=== PATIENT | male | born 1970 | race Caucasian/White ===

== ENCOUNTER 2019-08-04 14:51 | Inpatient (IN) | payer MEDICARE, MEDICAID ==
[~2019-08-04 14:51] MED LIST: Atropine Sulfate 1 mg/10 ml Syringe ONE; Calcium Chloride 1 GM/10 ML Abboject SYRINGE ONE; EPINEPHrine 1 MG/10 ML Abboject SYRINGE ONE; Sodium Bicarb 50 MEQ/50 ML Abboject 8.4% SYRINGE ONE
[2019-08-04 15:23] LABS: Hemoglobin 9.7 g/dL (14.0-18.0); Mean Corpuscular HGB CONC 30.4 g/dL (32.0-36.0); Mean Corpuscular Hemoglobin 31.8 pg (27.0-31.0); Mean Platelet Volume 8.7 fL (7.4-10.4); Platelet Count 172 thou/uL (130-400); RBC Distribution Width 14.7 % (11.5-14.5); Red Blood Cell (RBC) Count 3.04 mill/uL (4.70-6.10)
[2019-08-04 15:35] LABS: Actual Bicarbonate (HCO3a) 9.2 mEq/L (22-28); Analyzer IN Cardio ER; Base Excess (BEa) -23.7 mEq/L (-2.0 to +3.0); CO2 Tension 56.1 mmHg (35.0-45.0); Calcium, Ionized 1.32 mmol/L (1.12-1.30); Carboxyhemoglobin (COHb) 1.2 gm% (0.0-3.0); Potassium - ABG Lab 7.22 mmol/L (3.70-5.30)
[2019-08-04 15:36] LABS: ALV-art Gradient 555.875 (0-20); Puncture Site RBRACH; pH, Arterial 6.84 (7.35-7.45)
--- NOTE | 2019-08-04 15:37 | RAD ---
Exam: Chest one view HISTORY:Code 3. Comparison: None FINDINGS: Lines and tubes: Endotracheal tube at the level of clavicles. Nasogastric tube appears to be in the d istal thoracic esophagus. Cardiac silhouette:Cardiomegaly. Aorta: Unremarkable Pulmonary vessels: Normal Costophrenic angles: Moderate right-sided pleural effusion. LUNGS: Bilateral perihilar interstitial and alveolar opacities, right greater than left. Associated c entral air bronchograms. Pneumothorax: No obvious pneumothorax on this supine projection. Evaluation is limited by technique. Osseous abnormalities: Multiple right rib fractures. IMPRESSION: 1. Nasogastric tube terminating at the level of the distal thoracic esophagus. 2. Moderate right-sided pleural effusion. Multiple right rib fractures. Bilateral perihilar interstit ial and alveolar opacities. Findings may represent aspiration, volume overload, pneumonia or contusion. 3. Results study discussed with Dr. Manning 08/04/2019 at 3:36 PM Code CR Transcribed Date/Time: 08/04/2019 3:41 PM
[2019-08-04 15:44] LABS: ALT (SGPT) 60 U/L (8-55); AST (SGOT) 121 U/L (5-34); Albumin 3.7 g/dL (3.5-5.0); Alkaline Phosphatase 183 U/L (40-110); Anion Gap 40 mmol/L (10-20); BUN (Urea Nitrogen) 64 mg/dL (8.9-20.6); CK (CPK) 264 U/L (30-200); Calc. Creatinine Clearance 0 mL/min (70-130); Calcium 9.2 mg/dL (7.8-10.44); Chloride 91 mmol/L (98-107); Estimated GFR-MDRD 5; Globulin 2.8 g/dL (2.4-3.5); Lipase 13 U/L (8-78); Protein, Total 6.5 g/dL (6.0-8.3); Sodium 130 mmol/L (136-145)
[2019-08-04 15:53] LABS: Carbon Dioxide 8 mmol/L (22-29); Glucose Greater than 800 mg/dL (70-105); Potassium 8.6 mmol/L (3.5-5.1)
[2019-08-04 15:56] LABS: Band 5 % (5-11); Eosinophils 1 % (0-10); Hypochromia SLIGHT = 6-15 cells (100X) (0-5/hpf); Lymphocytes 48 % (21-51); MDiff Complete? YES; Macrocytosis SLIGHT = 6-15 cells (100X) (0-5/hpf); Monocytes 5 % (0-10); Neutrophil 39 % (42-75); Nucleated RBC 1 % (0); Platelet Morphology Comment Appears Adequate; Polychromasia MODERATE = 3-4 cells (100X) (0-2/hpf); Reactive Lymphocytes 1 % (0-10); Schistocytes SLIGHT = 2-5 cells (100X) (0-1/hpf); Target Cells SLIGHT = 2-5 cells (100X) (0-1/hpf); Tear Drops SLIGHT = 2-5 cells (100X) (0-1/hpf); White Blood Cell (WBC) Count 4.6 thou/uL (4.8-10.8)
[2019-08-04 16:08] LABS: Magnesium 2.7 mg/dL (1.6-2.6)
[2019-08-04 16:10] LABS: CKMB 15.7 ng/mL (0-6.6)
[2019-08-04 16:12] LABS: Phosphorus 9.2 mg/dL (2.3-4.7)
[2019-08-04] MEDS ORDERED: Insulin Regular 300 UNITS/3 ML VIAL ONE (16:21)
[2019-08-04] MEDS ORDERED: Mag-Al 1200 mg/1200 mg/30 ML UDCUP PO PRN (16:32)
[2019-08-04] MEDS ORDERED: CCU Electrolyte Replacement 1 EACH IVPB ONE (16:32)
[2019-08-04] MEDS ORDERED: Milk Of Magnesia 30 ML UDCUP PO PRN (16:32)
[2019-08-04] MEDS ORDERED: HUMULIN R 100 UNITS in Sodium Chloride 0.9% 100 ML IVPB SCH (16:45)
[2019-08-04] MEDS ORDERED: Ventilator Sedation Protocol 1 EACH FS SCH (16:45)
--- NOTE | 2019-08-04 16:50 | PDOC.FPRHP ---
- History of Present Illness Chief Complaint: Cardiac arrest History of Present Illness: Patient is a presumed 49 yo male (age unobtainable) with unknown PMHx who presented in cardiac arrest earlier today. He was found down for approx. 20-40 min at home before EMS arrived. Family did not perform CPR during that time. EMS found the patient to be in asystole and started CPR. Per EMS the patient's family reported that the patient may have been using drugs earlier today. EMS performed multiple rounds of CPR, and upon arrival at [facility] patient had multiple rounds of ACLS performed in ED. ROSC was achieved. Patient remains AMS and further history is unobtainable. ED Course: Patient had IO placed in right humerus by EMS which was subsequently removed in ED. Then right femoral central line placed. Hypothermia protocol initiated. Patient intubated in ED. Epinephrine drip was started. Dr. Negrete consulted from ED, plans to start dialysis once in ICU. Dr. Keen consulted from ED, no plans for cardio intervention at this time. consulted from ED, will adjust ventilator settings due to respiratory acidosis. BS found to be 800, given 10 units regular insulin in ED. UDS pending - Allergies/Adverse Reactions Allergies Allergy/AdvReac Type Severity Reaction Status Date / Time Unable to Assess Allergy Verified 08/04/19 15:24 - Home Medications Comments: unable to obtain home meds - History PMHx: unable to obtain PSHx: unable to obtain FHx: unable to obtain Social: unable to obtain - Review of Systems ROS unobtainable: due to mental status - Vital signs BP: 140/71 HR: 60 RR: 16 Tmax: 93.9F Pox: 94%% on Vent Wt: 70 kg - Physical Exam -Constitutional: intubated and sedated HEENT: normocephalic and atraumatic Neck: supple, no JVD Chest: no lesions Heart: RRR, normal S1/S2, no murmurs/rubs/gallops -Heart: 2+ pitting edema up to knees in bilateral LE -Lungs: poor air movement throughout Abdomen: bowel sounds present Musculoskeletal: normal structure, normal tone Skin: no jaundice -Skin: appears pale, skin cool to touch Heme/Lymphatic: no unusual bruising or bleeding -Psychiatric: unable to assess 2/2 AMS FMR H&P: Results - Labs Result Diagrams: 08/04/19 15:14 08/04/19 15:14 Lab results: WBC 4.6 thou/uL (4.8-10.8) L 08/04/19 15:14 Hgb 9.7 g/dL (14.0-18.0) L 08/04/19 15:14 Hct 31.8 % (42.0-52.0) L 08/04/19 15:14 MCV 104.0 fL (78.0-98.0) H 08/04/19 15:14 Plt Count 172 thou/uL (130-400) 08/04/19 15:14 Band Neuts % (Manual) 5 % (5-11) 08/04/19 15:14 ABG pH 6.84 (7.35-7.45) L* 08/04/19 15:27 ABG pCO2 56.1 mmHg (35.0-45.0) H 08/04/19 15:27 ABG pO2 87.0 mmHg (80.0-100.0) 08/04/19 15:27 Sodium 130 mmol/L (136-145) L 08/04/19 15:14 Potassium 8.6 mmol/L (3.5-5.1) H* 08/04/19 15:14 Chloride 91 mmol/L (98-107) L 08/04/19 15:14 Carbon Dioxide 8 mmol/L (22-29) L* 08/04/19 15:14 BUN 64 mg/dL (8.9-20.6) H 08/04/19 15:14 Creatinine 10.23 mg/dL (0.7-1.3) H 08/04/19 15:14 Glucose Greater than 800 mg/dL (70-105) H* 08/04/19 15:14 Calcium 9.2 mg/dL (7.8-10.44) 08/04/19 15:14 Total Bilirubin 1.0 mg/dL (0.2-1.2) 08/04/19 15:14 AST 121 U/L (5-34) H 08/04/19 15:14 ALT 60 U/L (8-55) H 08/04/19 15:14 Alkaline Phosphatase 183 U/L (40-110) H 08/04/19 15:14 Creatine Kinase 264 U/L (30-200) H 08/04/19 15:14 CK-MB (CK-2) 15.7 ng/mL (0-6.6) H* 08/04/19 15:14 Serum Total Protein 6.5 g/dL (6.0-8.3) 08/04/19 15:14 Albumin 3.7 g/dL (3.5-5.0) 08/04/19 15:14 Lipase 13 U/L (8-78) 08/04/19 15:14 - Radiology Interpretation Chest x-ray Status: report reviewed by me (pulmonary edema) FMR H&P: A/P - Problem List (1) Cardiac arrest Current Visit: Yes Status: Acute Code(s): I46.9 - CARDIAC ARREST, CAUSE UNSPECIFIED (2) Hyperglycemia, unspecified Current Visit: Yes Status: Acute Code(s): R73.9 - HYPERGLYCEMIA, UNSPECIFIED (3) Hyperkalemia Current Visit: Yes Status: Acute Code(s): E87.5 - HYPERKALEMIA (4) Hypothermia Current Visit: Yes Status: Acute Code(s): T68.XXXA - HYPOTHERMIA, INITIAL ENCOUNTER Qualifiers: Encounter type: initial encounter Qualified Code(s): T68.XXXA - Hypothermia , initial encounter (5) ESRD (end stage renal disease) on dialysis Current Visit: Yes Status: Acute Code(s): N18.6 - END STAGE RENAL DISEASE; Z99.2 - DEPENDENCE ON RENAL DIALYSIS (6) Drug abuse Current Visit: Yes Status: Acute Code(s): F19.10 - OTHER PSYCHOACTIVE SUBSTANCE ABUSE, UNCOMPLICATED (7) Transaminitis Current Visit: Yes Status: Acute Code(s): R74.0 - NONSPEC ELEV OF LEVELS OF TRANSAMNS & LACTIC ACID DEHYDRGNSE (8) Macrocytic anemia Current Visit: Yes Status: Acute Code(s): D53.9 - NUTRITIONAL ANEMIA, UNSPECIFIED (9) Hyperphosphatemia Current Visit: Yes Status: Acute Code(s): E83.39 - OTHER DISORDERS OF PHOSPHORUS METABOLISM - Plan Patient is a 49 yo male with unknown PMHx who presents with ROSC s/p cardiac arrest: #Cardiac Arrest s/p ROSC -admit to CCU for further monitoring -patient with initial bradycardia, epinephrine gtt started in ED and plan to continue -Consult Cardiology-Dr. Keen, evaluated patient in ED with no further recs at this time -Consult Pulmonology-, plans to adjust vent settings -intubated in field by EMS -Right femoral central line in place -Epinephrine gtt initiated for bradycardia, will continue -vitals q4h, strict I/Os #Hyperkalemia #ESRD on HD -per EMS patient's family reported the patient receives dialysis on MWF (unable to confirm) -initial K is 8.6 -Consult Nephro-Dr. Negrete, will arrange for HD in ICU #Hyperglycemia -BS 800 in ED, s/p 10 units regular insulin -start Insulin drip -Accuchecks q2h #Hx of Drug Abuse -UDS positive for meth, opioids, cocaine #Transaminitis -AST 121, ALT 60, Alk Phos 183 -continue to monitor on AM CMP #Macrocytic Anemia -monitor on CBC -consider workup once more alert #Hyperphosphatemia -Phos 9.2 on admission -dialysis to be performed in ICU #Hypothermia -temp 93.9F in ED -Hypothermia protocol initiated Diet: NPO VTE: SCDs, Heparin Code Status: FULL PCP--CC, unknown Dispo: Stable, admitted to inpatient in CCU. Continue to monitor. Consulted Pulm , Cardio, Nephro, appreciate further recs. Case Mgmt consulted to contact family. Anticipate LOS >2 days. FMR H&P: Upper Level - Plan Date/Time: 08/04/19 5525 I, Noel Mejia MD, have evaluated this patient and agree with findings/ plan as outlined by inclusion intern resident. Pertinent changes/additions are listed here. ROSC s/p cardiac arrest with hypothermic protocol - Likely secondary to missed dialysis - Continue epinephrine drip and titrate as possible - Cardiology consulted from ED - Core temp at 93.9 without intervention Hyperkalemia on HD - Reported missed sessions - Emergent dialysis Hyperglycemia on suspected DM - Insulin with accuchecks CODE STATUS: FULL CODE until further evaluation of surrogate decision maker vs. advanced directive PCP: Unknown Disposition: Poor, will admit to CCU for emergent dialysis.
[2019-08-04 16:59] LABS: Bacteria/HPF None Seen HPF (None Seen); Bilirubin Negative (Negative); Blood, Urine Trace (Negative); Clarity Clear (Clear); Glucose, Urine (Dipstick) Greater than 1000 mg/dL (Negative); Leukocyte Negative Leu/uL (Negative); Nitrite Negative (Negative); Protein, Urine (Dipstick) 200 mg/dL (Neg-Trace); Squamous Epithelial None Seen HPF (0-3); Urobilinogen Normal mg/dL (Less than 2); WBC/HPF 0-3 HPF (0-3)
[2019-08-04] MEDS ORDERED: DISCONTINUE PREVIOUS NARCOTIC PAIN MEDICATIONS AND BENZODIAZEPINES FS SCH (17:06)
[2019-08-04] MEDS ORDERED: Fentanyl BOLUS 250 ML IVPB PRN (17:06)
[2019-08-04] MEDS ORDERED: Morphine 2 MG/ML SYRINGE SLOW IVP PRN (17:06)
[2019-08-04] MEDS ORDERED: fentaNYL Citrate/PF 2,000 MCG in Sodium Chloride 0.9% 60 ML IV SCH (17:06)
[2019-08-04] MEDS ORDERED: Propofol BOLUS 1,000 MG/100 ML VIAL IV PRN (17:06)
[2019-08-04] MEDS ORDERED: Lorazepam 2 MG/ML VIAL SLOW IVP PRN (17:06)
[2019-08-04 17:10] LABS: Amphetamine Not Detected (NotDetected); Barbiturates Screen Not Detected (NotDetected); Benzodiazepine Screen Not Detected (NotDetected); Cocaine Metabolite Screen Detected (NotDetected); Medtox Control Line Valid? VALID (VALID); Medtox Reader # READER 4; Methadone Not Detected (NotDetected); Methamphetamine Detected (NotDetected); Opiate Screen Detected (NotDetected); Oxycodone Screen Not Detected (NotDetected); Phencyclidine (PCP) Not Detected (NotDetected); THC/Cannabinoid Screen Not Detected (NotDetected); Tricyclic Screen Not Detected (NotDetected)
[2019-08-04] MEDS ORDERED: niCARdipine 40MG In NaCl 40 MG/200 ML BAG IVPB SCH (17:30)
[2019-08-04 17:31] LABS: Actual Bicarbonate (HCO3a) 11.8 mEq/L (22-28); Base Excess (BEa) -14.9 mEq/L (-2.0 to +3.0); CO2 Tension 30.5 mmHg (35.0-45.0); Calcium, Ionized 1.21 mmol/L (1.12-1.30); Carboxyhemoglobin (COHb) 1.3 gm% (0.0-3.0); Hemoglobin (Hb) 8.6 g/dL (14.0-18.0); O2 Tension (PaO2) 475.2 mmHg (80.0-100.0); Potassium - ABG Lab 7.35 mmol/L (3.70-5.30)
[2019-08-04 17:32] LABS: ALV-art Gradient 199.675 (0-20); Puncture Site RB
[2019-08-04] MEDS: niCARdipine 50 MG in Sodium Chloride 0.9% 250 ML 230 ML IV SCH (17:35)
--- NOTE | 2019-08-04 17:51 | CON ---
DATE OF CONSULTATION: 08/04/2019 REASON FOR CONSULTATION: Acute respiratory failure, prolonged cardiac arrest. HISTORY OF PRESENT ILLNESS: We think this patient's name is Sidney Orozco, whose date of is 1970, but that needs to be confirmed. This patient presented to the ER via EMS. He was down approximately 20 to 40 minutes at home before arrival. Apparently, the patient's family did not perform CPR. Initial rhythm was asystole. Apparently, there was a question whether or not the patient has been using illicit drugs earlier. He had multiple rounds of ACLS performed in the ED for return of spontaneous circulation was achieved. Total down time seems to be about 40 minutes. PAST MEDICAL HISTORY: Assuming this is the correct patient: 1. End-stage renal disease. 2. Cocaine abuse. 3. Secondary hyperparathyroidism. 4. Anemia of chronic disease. 5. Type 2 diabetes mellitus. 6. Hypothyroidism. 7. Hypertension. PAST SURGICAL HISTORY: 1. Appendectomy. 2. AV fistula placement in left forearm. SOCIAL HISTORY: Smokes marijuana and cocaine. REVIEW OF SYSTEMS: Cannot be obtained. He is currently intubated. PHYSICAL EXAMINATION: VITAL SIGNS: Pulse 85, blood pressure 191/103, O2 saturation 100%, respiratory rate 23, and temperature 93.0. GENERAL: The patient is a middle-aged male, who appears much older than his stated age. HEENT: Pupils are 5 mm, unreactive to light. Sclerae anicteric. Oropharynx, ET tube in place. He does have some chin thrusting when stimulated. NEUROLOGIC: He does not move any extremities when provoked with pain. CARDIOVASCULAR: S1 and S2. Regular. LUNGS: Clear to auscultation. ABDOMEN: Soft and nontender. EXTREMITIES: Left forearm AV fistula noted. LABORATORY DATA: White blood cell count 4.6, hematocrit 31.8, and platelet count 172. A pH initially 6.8, pCO2 of 56, and pO2 of 87. Sodium 130, potassium 8.6, chloride 91, CO2 of 8, BUN 64, creatinine 10.0, glucose greater than 800, and calcium 9.2. CK 264 and troponin 0.45. Urinalysis shows glucosuria. Chest x-ray demonstrates right effusion, air bronchograms on the left, and diffuse pulmonary edema throughout. ASSESSMENT: 1. Status post prolonged cardiopulmonary arrest. 2. Acute respiratory failure. 3. Severe metabolic acidosis. 4. Hyperkalemia. 5. Hyperosmolar nonketotic hyperglycemia. 6. Transaminitis. PLAN: Survival . He will need emergent hemodialysis. He will receive nicardipine as needed for blood pressure management. We will await the results of his tox screen. We can probably stop the epinephrine drip. Job ID: [id number]
[2019-08-04] MEDS: Propofol 1,000 MG/100 ML VIAL IV PRN (20:18)
[2019-08-04] MEDS: Pantoprazole 40 MG VIAL IVP SCH (20:18)
[2019-08-04] MEDS: Heparin 5,000 UNITS/ML VIAL SC SCH (20:18)
[2019-08-04] MEDS ORDERED: Dextrose 50% Abboject 50 ML SYRINGE SLOW IVP PRN (22:54)
[2019-08-04] MEDS ORDERED: Dextrose 5% in Water 1,000 ML IV PRN (22:54)
[2019-08-05] MEDS: HumaLOG 300 UNITS/3 ML VIAL SC PRN ×3 (01:03→23:08)
[2019-08-05] MEDS: niCARdipine 50 MG in Sodium Chloride 0.9% 250 ML 230 ML IV SCH (03:48)
[2019-08-05] MEDS: Propofol 1,000 MG/100 ML VIAL IV PRN (04:35)
[2019-08-05 04:55] LABS: #Lymphocytes 0.9 thou/uL (1.20-3.40); #Monocytes 0.6 thou/uL (0.11-0.59); #Neutrophils 12.3 thou/uL (1.40-6.50); %Basophils 0.2 % (0.0-1.0); %Eosinophils 0.3 % (0.0-10.0); %Lymphocytes 6.8 % (21.0-51.0); %Neutrophils 88.7 % (42.0-75.0); Hemoglobin 9.1 g/dL (14.0-18.0); Mean Corpuscular HGB CONC 33.9 g/dL (32.0-36.0); Mean Corpuscular Hemoglobin 31.5 pg (27.0-31.0); Mean Corpuscular Volume 92.9 fL (78.0-98.0); Platelet Count 225 thou/uL (130-400); RBC Distribution Width 14.8 % (11.5-14.5); Red Blood Cell (RBC) Count 2.89 mill/uL (4.70-6.10); White Blood Cell (WBC) Count 13.8 thou/uL (4.8-10.8)
[2019-08-05 05:20] LABS: ALT (SGPT) 67 U/L (8-55); AST (SGOT) 117 U/L (5-34); Albumin 3.7 g/dL (3.5-5.0); Alkaline Phosphatase 274 U/L (40-110); Anion Gap 25 mmol/L (10-20); BUN (Urea Nitrogen) 28 mg/dL (8.9-20.6); Bilirubin, Total 0.6 mg/dL (0.2-1.2); Calc. Creatinine Clearance 16 mL/min (70-130); Calcium 9.3 mg/dL (7.8-10.44); Carbon Dioxide 21 mmol/L (22-29); Chloride 93 mmol/L (98-107); Estimated GFR-MDRD 12; Globulin 2.9 g/dL (2.4-3.5); Glucose 287 mg/dL (70-105); Potassium 4.4 mmol/L (3.5-5.1); Protein, Total 6.6 g/dL (6.0-8.3); Sodium 135 mmol/L (136-145)
--- NOTE | 2019-08-05 06:59 | PDOC.FM ---
- Subjective Subjective: Pt intubated. Pupils fixed and dilated. No purposeful movement. - Objective MAR Reviewed: Yes Vital Signs & Weight: Vital Signs (12 hours) Temp Pulse Resp Pulse Ox 08/05/19 02:34 82 08/05/19 02:00 97.7 F 08/05/19 00:13 82 08/04/19 21:49 7 L 08/04/19 21:48 86 08/04/19 19:49 22 H 08/04/19 19:30 100 08/04/19 19:00 95.7 F L Weight Weight 59.6 kg Most Recent Monitor Data Heart Rate from ECG 71 NIBP 113/62 NIBP BP-Mean 79 Respiration from ECG 20 SpO2 100 I&O: 08/03/19 08/04/19 08/05/19 06:59 06:59 06:59 Intake Total 329.3 Output Total 340 Balance -10.7 Result Diagrams: 08/06/19 04:00 08/06/19 04:00 Phys Exam - Physical Examination Intubated Pupils fixed, dilated. Diminished breath sounds on right side. Left lung cabrera clear Cardiovascular: RRR Gastrointestinal: soft No gag reflex. Crossed extensor reflex LE. Dx/Plan - Plan Plan: Cardiac Arrest s/p ROSC - No longer on epi gtt. Cooling protocol d/c'ed - Intubated 08/03 - Cardiology consulted-Dr. Keen - Pulmonology consulted, apprec recs Intraventricular Hemorrhage - Brain CT: IVH with severe cerebral edema and herniation - Prognosis poor, will contact family to set up family meeting. ESRD on HD MWF - 6.2L removed in HD yesterday - Nephro-Dr. Negrete following Hyperglycemia, improved - Resume home insulin - Accuchecks q2h Hx of Drug Abuse - UDS positive for meth, opioids, cocaine Transaminitis likely 2/2 shock liver Diet: NPO VTE: SCDs, AC held for IVH Code Status: FULL Lines: R femoral Addendum - Attending - Attending Attestation Date/Time: 08/06/19 8256 I personally evaluated the patient and discussed the management with Dr. Bryant on 08/05/2019 I agree with the History, Examination, Assessment and Plan documented above with any addition or exceptions noted below - Intubated; off sedation and no responses per nurse. Afebrile VSS. A/P: 1) S/p Cardiac arrest with prolonged resuscitation - continue current support. 2) Anoxic brain injury - Warming patient and plan for apnea test in AM. CT brain with interventricular hemorrhage and herniation of cerebellar tonsils. Very poor prognosis.
[2019-08-05 07:12] LABS: Magnesium 1.9 mg/dL (1.6-2.6); Phosphorus 2.8 mg/dL (2.3-4.7)
[2019-08-05 07:14] LABS: Actual Bicarbonate (HCO3a) 24.6 mEq/L (22-28); Calcium, Ionized 1.08 mmol/L (1.12-1.30); Carboxyhemoglobin (COHb) 0.7 gm% (0.0-3.0); Hemoglobin (Hb) 8.8 g/dL (14.0-18.0); O2 Tension (PaO2) 209.6 mmHg (80.0-100.0); Potassium - ABG Lab 4.24 mmol/L (3.70-5.30)
[2019-08-05 07:15] LABS: CO2 Tension 23.6 mmHg (35.0-45.0); Puncture Site RRA; pH, Arterial 7.64 (7.35-7.45)
--- NOTE | 2019-08-05 08:10 | RAD ---
EXAM: CHEST ONE VIEW HISTORY: Patient on ventilator. Follow-up evaluation. COMPARISON: 08/04/2019 FINDINGS: Endotracheal tube and nasogastric tube remain in place. The nasogastric tube has been advanced with t ip overlying the expected location of the proximal body of the stomach. Cardiac silhouette is magnified by projection. Small to moderate size right pleural effusion is again seen with associated volume loss. Patchy parenchymal density is seen in the right infrahilar region which could be related to volume loss or pneumonitis or possibly aspiration. Contusion cannot be entirely excluded. Multiple mildly angulated right-sided rib fractures are again seen. Mildly angulated left lateral seventh rib fracture is present. IMPRESSION: 1. Nasogastric tube has been advanced. Endotracheal tube is stable in position. 2. Small to moderate size right pleural effusion and associated volume loss. Interstitial and parench ymal densities in the right infrahilar region could be related to volume loss, aspiration pneumonitis, or contusion. Pneumonia cannot be entirely excluded. 3. Multiple right-sided rib fractures with lateral left seventh rib fracture.
[2019-08-05] MEDS ORDERED: Prevnar 13-Val Conj/PF 0.5 ML SYRINGE IM ONE (09:00)
[2019-08-05] MEDS ORDERED: FLU VACC QS2019-20(6MOS UP)/PF 60 MCG/0.5 ML SYRINGE IM ONE (09:00)
[2019-08-05] MEDS ORDERED: Insulin Glargine 5 UNITS in Pre-Filled Syringe 1 EACH SC SCH (09:00)
[2019-08-05] MEDS: Heparin 5,000 UNITS/ML VIAL SC SCH ×2 (09:53→15:10)
[2019-08-05] MEDS: Pantoprazole 40 MG VIAL IVP SCH ×2 (09:54→20:15)
[2019-08-05 12:37] LABS: Actual Bicarbonate (HCO3a) 27.3 mEq/L (22-28); Base Excess (BEa) 4.8 mEq/L (-2.0 to +3.0); CO2 Tension 32.1 mmHg (35.0-45.0); Calcium, Ionized 1.09 mmol/L (1.12-1.30); Carboxyhemoglobin (COHb) 0.6 gm% (0.0-3.0); Hemoglobin (Hb) 9.4 g/dL (14.0-18.0); Potassium - ABG Lab 3.98 mmol/L (3.70-5.30)
[2019-08-05 12:38] LABS: ALV-art Gradient 146.375 (0-20); O2 Tension (PaO2) 526.5 mmHg (80.0-100.0); Puncture Site RRA; pH, Arterial 7.55 (7.35-7.45)
[2019-08-05 12:54] VITALS: BMI 19.3
--- NOTE | 2019-08-05 13:17 | CON ---
DATE OF CONSULTATION: REASON FOR CONSULTATION: Cardiac arrest. HISTORY OF PRESENT ILLNESS: Mr. Orozco is an unfortunate 49-year-old gentleman, who recently presented with [id number] arrest. CPR was not performed. The history is taken from the chart. No family was present. He does have a previous history of cocaine use in addition to end-stage renal disease. ACLS was performed in the emergency room with return of spontaneous circulation. His potassium was 8.6. PAST MEDICAL HISTORY: End-stage renal disease, hyperparathyroidism, cocaine abuse, diabetes mellitus, hypothyroidism, hypertension, AV fistula, and appendectomy. SOCIAL HISTORY: Positive cocaine, positive marijuana use. REVIEW OF SYSTEMS: Unobtainable. PHYSICAL EXAMINATION: VITAL SIGNS: Blood pressure 115/73, pulse 56, and temperature afebrile. GENERAL: The patient is currently intubated, sedated. He is currently on nicardipine for blood pressure management. NEUROLOGIC: The patient is alert and oriented x3 with no focal neurologic deficits. HEENT: Sclerae without icterus. Mouth has moist mucous membranes with normal pallor. NECK: No JVD. Carotid upstroke brisk. No bruits bilaterally. LUNGS: Clear to auscultation with unlabored respirations. BACK: No scoliosis or kyphosis. CARDIAC: Regular rate and rhythm with normal S1 and S2. No S3 or S4 noted. No significant rubs, murmurs, thrills, or gallops noted throughout the precordium. PMI is not displaced. There is no parasternal heave. ABDOMEN: Soft, nontender, nondistended. No peritoneal signs present. No hepatosplenomegaly. No abnormal striae. EXTREMITIES: 2+ femoral and 2+ dorsalis pedis pulses. No cyanosis, clubbing, or edema. SKIN: No gross abnormalities. PERTINENT LABORATORY DATA: Hemoglobin 9.1, hematocrit 26.9, and platelet count of 225. Creatinine 5.21, sodium 135, and initial potassium of 8.6. AST 117 and ALT 67. EKG, no acute ST-T wave changes. Chest x-ray, small right-sided pleural effusion. Urine specimen; opiates, methamphetamine, and cocaine all detected. IMPRESSION: 1. Onl-pb-seqsoutv arrest. 2. End-stage renal disease. 3. Hyperkalemia. 4. Illicit drug use. RECOMMENDATIONS: Long-term outcome for Mr. Duffee is unknown. There was no CPR performed on the scene. The patient did receive return of spontaneous circulation in the emergency room. At this point, we will continue close observation. I would like to see if he will improve neurologically. We will review his echo. His potassium after dialysis is now back down to normal. His recent arrest likely precipitated by multiple factors including illicit drug use in addition to hyperkalemia. He appeared to skip his dialysis. Prognosis appears poor. Total critical care time, 40 minutes spent. Job ID: [id number]
--- NOTE | 2019-08-05 14:55 | CT ---
CT HEAD NONCONTRAST: HISTORY: Altered mental status. Pupils fixed and dilated. COMPARISON: 06/26/2019. FINDINGS: Large amount of hyperdense material throughout the mildly distended ventricular system. Fourth ventri kelsie is slightly distended with acute hemorrhage. There is also a small amount of hyperdense blood throughout the subarachnoid space of the cranial vault. Diffuse effacement of the cerebral and cerebe llar sulci and the basilar cisterns. Cerebellar tonsils extend into the foramen magnum, a new finding. Minimal leftward shift of the septum pellucidum. The zimmerman matter cortex is diffusely hypodense. Loss of zimmerman-white differentiation of the basal gangli a. IMPRESSION : 1. Large amount of intraventricular hemorrhage with severe cerebral edema and herniation of the cere bellar tonsils into the foramen magnum. 2. Severe anoxic injury to the cerebrum and cerebellum. Findings were called to Dr. Oliveros at 1449 hours. Code CR. Transcribed Date/Time: 08/05/2019 3:02 PM
--- NOTE | 2019-08-05 15:14 | PRG ---
DATE OF SERVICE: 08/05/2019 SERVICE: Pulmonary Medicine. INTERVAL HISTORY: The patient is doing poorly from a neurologic standpoint. He is essentially nonresponsive. He is not overbreathing the ventilator. He does not demonstrate a cough or gag. Otherwise, there has been no interval change to his condition. He is a touch hypothermic. PHYSICAL EXAMINATION: VITAL SIGNS: Afebrile currently; pulse 65; blood pressure 111/74; respirations 14; and saturation 100%, currently on 30% FiO2 and a PEEP of 5. GENERAL: The patient is intubated. He is on no sedation. HEENT: Normocephalic, atraumatic. Sclerae are white. Conjunctivae are pink. Oral mucosa is moist without lesions. LUNGS: Decent air entry. No prolonged expiratory phase or wheezing is appreciated. HEART: Normal rate. Regular. ABDOMEN: Soft, nontender, and nondistended. Bowel sounds are positive. MUSCULOSKELETAL: No cyanosis or clubbing. There is 1 to 2+ pitting throughout. NEUROLOGIC: Pupils are fixed. Doll-eyes abnormal. No gag or cough with deep suctioning. No over breathing of the ventilator. No withdraw from noxious stimuli. No grimice with TMJ pressure or supraorbital pain. LABORATORY DATA: WBC 13.8, hemoglobin 9.1, and platelets 225,000. PH of 7.55, pCO2 of 32, pO2 of 526 on 100% FiO2 at that time. Creatinine 5.21, BUN 28, anion gap 25. Basic metabolic profile is otherwise unremarkable. Magnesium and phosphorous are unremarkable. AST and ALT are roughly stable. Alkaline phosphatase 274 and is gently up-trending. Urinalysis is unremarkable. Urine drug screen is positive for methamphetamines, cocaine metabolites, and opiates. IMAGIN. Chest x-ray demonstrates a likely layering effusion on the right side. No disease on the left. Endotracheal tube is in good position. 2. CT of the brain demonstrates significant bleeding into the ventricular structures. There is fullness to the ventricles, though there is not overt dilation. There is complete loss of zimmerman-white matter throughout bilateral hemispheres. ASSESSMENT: 1. Acute hypoxic respiratory failure. 3. Pulseless electrical activity arrest, out of hospital, with prolonged CPR. 3. Intraventricular hemorrhage, with loss of zimmerman-white matter. 4. End-stage renal disease with history of medical noncompliance. 5. Polysubstance drug abuse. DISCUSSION AND PLAN: The patient is likely brain . I will do an apnea analysis. That being said, I would like to make certain that there is nothing from neurosurgeries perspective that could improve this patient's outcome. I am doubtful there is presently. All antiplatelet, and anticoagulants will be interrupted. We will ready a dose of FFP to be given if neurosurgery has any interventions that would provide this patient a chance at meaningful improvement . Critical Care will continue to follow closely. CRITICAL CARE TIME: 30 minutes. Job ID: [id number] MTDD
--- NOTE | 2019-08-05 16:11 | PRG ---
DATE OF SERVICE: 08/05/2019 I have been asked to review a CT scan to see if there are any neurosurgical interventions I can offer for this patient. Evidently, the patient was admitted yesterday and resuscitated from cardiac arrest. He has been in the critical care unit and has not woken at all. Interestingly, he had a CT scan of the brain from last month, against which to compare his current scan. The differences are marked. On the scan, the cerebral cortex has lost all of its density. It is usually slightly more dense than the white matter, given the fatty tissue that surrounds the neurons in the white matter. On this scan, the imaging is reversed. The white matter is visible. The cortex is hypodense throughout. The brainstem is also hypodense. The vasculature is relatively hyperdense compared to the hypodensity at the base of the brain. All of this diffuse hypodensity means there is a global anoxic ischemic injury resulting in of cerebral cortices and this is not treatable with any neurosurgical intervention. The changes are permanent and not recoverable. Please call us with questions. Job ID: [id number]
[2019-08-05] MEDS ORDERED: methylPREDNISolone Sod Succ 40 MG VIAL IVP SCH (21:15)
[2019-08-05] MEDS ORDERED: Levothyroxine Sodium 200 MCG VIAL IVP SCH (21:15)
[2019-08-05] MEDS ORDERED: Levothyroxine Sodium 400 MCG in Sodium Chloride 0.9% 100 ML IVPB SCH (21:30)
[2019-08-05] MEDS ORDERED: methylPREDNISolone Sod Succ 2 GM in Sodium Chloride 0.9% 100 ML IVPB SCH (21:45)
[2019-08-06 02:20] VITALS: BP 133/79
[2019-08-06 04:19] LABS: #Lymphocytes 0.3 thou/uL (1.20-3.40); #Monocytes 0.2 thou/uL (0.11-0.59); #Neutrophils 4.8 thou/uL (1.40-6.50); %Eosinophils 0.2 % (0.0-10.0); %Lymphocytes 5.6 % (21.0-51.0); %Monocytes 3.1 % (0.0-10.0); Hemoglobin 9.3 g/dL (14.0-18.0); Mean Corpuscular HGB CONC 32.7 g/dL (32.0-36.0); Mean Corpuscular Hemoglobin 31.4 pg (27.0-31.0); Mean Corpuscular Volume 95.9 fL (78.0-98.0); Mean Platelet Volume 8.3 fL (7.4-10.4); Platelet Count 193 thou/uL (130-400); RBC Distribution Width 15.1 % (11.5-14.5); Red Blood Cell (RBC) Count 2.97 mill/uL (4.70-6.10); White Blood Cell (WBC) Count 5.3 thou/uL (4.8-10.8)
[2019-08-06 04:45] LABS: ALT (SGPT) 42 U/L (8-55); AST (SGOT) 38 U/L (5-34); Albumin 3.1 g/dL (3.5-5.0); Alkaline Phosphatase 203 U/L (40-110); Anion Gap 22 mmol/L (10-20); BUN (Urea Nitrogen) 38 mg/dL (8.9-20.6); Bilirubin, Total 0.4 mg/dL (0.2-1.2); Calc. Creatinine Clearance 13 mL/min (70-130); Calcium 8.3 mg/dL (7.8-10.44); Carbon Dioxide 26 mmol/L (22-29); Chloride 98 mmol/L (98-107); Estimated GFR-MDRD 10; Globulin 2.9 g/dL (2.4-3.5); Glucose 136 mg/dL (70-105); Potassium 5.7 mmol/L (3.5-5.1); Sodium 140 mmol/L (136-145)
--- NOTE | 2019-08-06 06:25 | PDOC.FM ---
- Subjective Subjective: No improvement since yesterday. Now euthermic. - Objective MAR Reviewed: Yes Vital Signs & Weight: Vital Signs (12 hours) Temp Pulse Resp BP Pulse Ox 08/06/19 06:00 10 L 08/06/19 04:00 99.0 F 10 L 08/06/19 02:17 73 133/79 08/06/19 02:00 10 L 08/06/19 00:00 96.9 F L 10 L 08/05/19 22:12 71 91/57 L 08/05/19 22:00 97.3 F L 10 L 08/05/19 20:00 96.8 F L 10 L 98 08/05/19 19:00 96.8 F L 08/05/19 18:38 72 126/74 Weight Admit Weight 59.421 kg Weight 59.6 kg Most Recent Monitor Data Heart Rate from ECG 69 NIBP 142/77 NIBP BP-Mean 98 Respiration from ECG 10 SpO2 96 I&O: 08/04/19 08/05/19 08/06/19 06:59 06:59 06:59 Intake Total 329.3 767 Output Total 340 75 Balance -10.7 692 Result Diagrams: 08/06/19 04:00 08/06/19 04:00 Phys Exam - Physical Examination Intubated right lung sounds diminished. Cardiovascular: RRR Gastrointestinal: soft Pupils fixed dilated, no gag reflex Dx/Plan - Plan Plan: Cardiac Arrest s/p ROSC with Anoxic brain injury - Euthermic - Dr Domo Quintana following, apprec recs - Neuro signed off, no intervention - Will complete anoxic checklist and keep in close communication with family Intraventricular Hemorrhage - Brain CT: IVH with severe cerebral edema and herniation - Prognosis poor ESRD on HD MWF - Nephro-Dr. Caden stratton DM - Accuchecks q6h with sliding scale Hx of Drug Abuse - UDS positive for meth, opioids, cocaine Transaminitis likely 2/2 shock liver VTE: SCDs, AC held for IVH Lines: R femoral Addendum - Attending - Attending Attestation Date/Time: 08/06/19 1502 I personally evaluated the patient and discussed the management with Dr. Bryant I agree with the History, Examination, Assessment and Plan documented above with any addition or exceptions noted below - Intubated; Off sedation. Afebrile VSS. A/P: 1) Anoxic brain injury - brain declared. Discussing with family.
--- NOTE | 2019-08-06 07:26 | CON ---
DATE OF CONSULTATION: CONSULTING PHYSICIAN: Sunita Loera MD REQUESTING PHYSICIAN: Raven Pierson DO. REASON FOR CONSULTATION: Need for maintenance hemodialysis. IMPRESSION: 1. End-stage renal disease, on hemodialysis on Monday, Monday, and Monday. 2. Severe medical noncompliance with his dialysis treatment. 3. Hyerkalemia in the context of noncompliant with dialysis. PLAN: 1. The patient urgently being dialyzed with potassium of 2. 2. Ultrafiltration as tolerated by hemodynamics. 3. Further management will be dependent on the clinical course. HISTORY OF PRESENT ILLNESS: History is that of a 49-year-old gentleman with end-stage renal disease, who is very noncompliant with his dialysis treatment, who has skipped several dialysis and has been in and out of hospitals, both [facility], [facility], and essentially more of the [facility] branch. The patient skips on dialysis treatment prior to presentation with potassium of 8 and coded while in cardiac resuscitation prior to being intubated. The patient noted on presentation with potassium . PAST MEDICAL HISTORY: Significant for end-stage renal disease, severe medical noncompliance, diabetes mellitus, and poorly controlled substance abuse. FAMILY HISTORY: Not significantly related to the presenting illness. SOCIAL HISTORY: Significant for illicit drug use. No alcohol. Ongoing tobacco use. REVIEW OF SYSTEMS: Could not be obtained from this patient. PHYSICAL EXAMINATION: GENERAL: The patient is noted to be intubated, on life support. Hemodynamically stable. HEENT: Remarkable for endotracheal tube in place. CARDIOVASCULAR SYSTEM: First and second heart sounds were heard. RESPIRATORY SYSTEM: Revealed vented sounds. DIGESTIVE SYSTEM: Revealed a benign abdomen. EXTREMITIES: Showed some peripheral edema. LABORATORY INVESTIGATION: Significant for potassium of 8.6, sodium of 130, bicarb of 8 with a creatinine of 10.22, and BUN of 64. SUMMARY: A 49-year-old gentleman with severe medical noncompliance, who presented here status post cardiac arrest in the context of severe hyperkalemia of 8.6. Thank you for this consultation. We will follow with you. Job ID: [id number]
[2019-08-06 07:46] VITALS: TEMP 98.6
--- NOTE | 2019-08-06 07:46 | RAD ---
SINGLE VIEW CHEST: Date: 08/06/2019 COMPARISON: 08/05/2019. HISTORY: CCU patient with respiratory failure. FINDINGS: Single view of the chest shows normal sized cardiomediastinal silhouette. The endotracheal tube and N G tube are unchanged in position. There is a moderate right pleural effusion with adjacent atelectasi s. IMPRESSION: Stable exam. POS: [facility]
[2019-08-06 07:50] LABS: Actual Bicarbonate (HCO3a) 21.1 mEq/L (22-28); Base Excess (BEa) -4.6 mEq/L (-2.0 to +3.0); CO2 Tension 41.6 mmHg (35.0-45.0); Calcium, Ionized 1.04 mmol/L (1.12-1.30); Carboxyhemoglobin (COHb) 1.4 gm% (0.0-3.0); Hemoglobin (Hb) 9.1 g/dL (14.0-18.0); O2 Tension (PaO2) 275.2 mmHg (80.0-100.0); Potassium - ABG Lab 6.12 mmol/L (3.70-5.30); pH, Arterial 7.32 (7.35-7.45)
[2019-08-06 07:51] LABS: Puncture Site LRA
[2019-08-06] MEDS: Pantoprazole 40 MG VIAL IVP SCH (09:30)
[2019-08-06 09:41] LABS: Actual Bicarbonate (HCO3a) 17.4 mEq/L (22-28); Base Excess (BEa) -11.6 mEq/L (-2.0 to +3.0); CO2 Tension 54.6 mmHg (35.0-45.0); Carboxyhemoglobin (COHb) 1.5 gm% (0.0-3.0); Hemoglobin (Hb) 9.1 g/dL (14.0-18.0); O2 Tension (PaO2) 291.5 mmHg (80.0-100.0); Potassium - ABG Lab 6.21 mmol/L (3.70-5.30)
[2019-08-06 09:42] LABS: Puncture Site RBA; pH, Arterial 7.12 (7.35-7.45)
[2019-08-06 09:44] LABS: Actual Bicarbonate (HCO3a) 18.8 mEq/L (22-28); Base Excess (BEa) -10.5 mEq/L (-2.0 to +3.0); Calcium, Ionized 1.09 mmol/L (1.12-1.30); Carboxyhemoglobin (COHb) 1.2 gm% (0.0-3.0); Hemoglobin (Hb) 9.2 g/dL (14.0-18.0); Potassium - ABG Lab 6.37 mmol/L (3.70-5.30)
[2019-08-06 09:46] LABS: Puncture Site RRA; pH, Arterial 7.11 (7.35-7.45)
[2019-08-06] MEDS: HumaLOG 300 UNITS/3 ML VIAL SC PRN (12:59)
--- NOTE | 2019-08-06 15:06 | PRG ---
DATE OF SERVICE: 08/06/2019 SERVICE: Pulmonary Medicine. INTERVAL HISTORY: The patient was doing fine from respiratory standpoint. Neurologically, he has been devastated. There has been no interval change to his condition, otherwise. PHYSICAL EXAMINATION: VITAL SIGNS: Afebrile. Pulse 69, blood pressure 124/68, respirations 10, saturation 97%, on 30% FiO2 with PEEP of 5. GENERAL: The patient was intubated. He was on no sedation. HEENT: Normocephalic and atraumatic. Sclerae white. Conjunctivae pink. Oral mucosa was moist without lesions. LUNGS: Decent air entry without any prolonged expiratory phase or wheezing present. HEART: Normal rate. Regular. ABDOMEN: Soft, nontender, and nondistended. Bowel sounds are positive. MUSCULOSKELETAL: No cyanosis or clubbing. There was trace to 1+ pitting throughout. NEUROLOGIC: Pupils are fixed and nonresponsive with light. He does not withdraw from noxious stimuli in upper or lower extremities. He does not respond to noxious stimuli at the supraorbital or temporomandibular stimuli. He has an absent cough or gag. Doll's eyes are abnormal. I did cold water calorics today, which were abnormal. He also does not over breathe the ventilator. We did an apnea study, which was also abnormal, confirming brain . LABORATORY DATA: WBC 5.3, hemoglobin 9.3, and platelets 193,000. PH 7.11. PCO2 was 41 prior to apnea study, and went up to 61. Creatinine 5.97, BUN 38. Basic metabolic profile and liver function studies are otherwise unremarkable. Urinalysis was negative. Urine drug screen was positive for cocaine, methamphetamine, and opiates. IMAGING: Chest x-ray demonstrates stable exam with a likely right-sided effusion. There was cardiomegaly present. Enteric tube was roughly 4 cm above the level of the cheko. Enteric catheter courses midline below the level of the diaphragm and out of the field of view. ASSESSMENT: 1. Acute hypoxic respiratory failure. 2. Pulseless electrical activity, [id number] prolonged CPR. 3. Intraventricular hemorrhage with loss of zimmerman-white matter. 4. End-stage renal disease with a history of medical noncompliance. 5. Polysubstance drug abuse. DISCUSSION AND PLAN: Based on my physical exam, the patient was brain . We did an apnea study, which was abnormal. Time of was 45 hours on 06 August 2019. We hooked him back up to the ventilator, so that we could recover his body, so that he we can discuss organ donation with the patient's family. CRITICAL CARE TIME: 30 minutes. Job ID: [id number]
[2019-08-06 16:17] LABS: Hemoglobin 8.2 g/dL (14.0-18.0); Mean Corpuscular HGB CONC 32.1 g/dL (32.0-36.0); Mean Corpuscular Hemoglobin 31.7 pg (27.0-31.0); Mean Corpuscular Volume 98.6 fL (78.0-98.0); Platelet Count 178 thou/uL (130-400); White Blood Cell (WBC) Count 7.8 thou/uL (4.8-10.8)
[2019-08-06 16:22] LABS: INR-International Normal Ratio 1.3; Prothrombin Time 15.8 SEC (12.0-14.7)
[2019-08-06 16:23] LABS: PTT 36.6 SEC (22.9-36.1)
[2019-08-06 16:36] LABS: Band 24 % (5-11); Burr Cells SLIGHT = 2-5 cells (100X) (0-1/hpf); Lymphocytes 9 % (21-51); MDiff Complete? YES; Metamyelocyte 2 % (0-0); Monocytes 5 % (0-10); Neutrophil 59 % (42-75); Platelet Morphology Comment Appears Adequate; Poikilocytosis SLIGHT = 6-15 cells (100X) (0-5/hpf); Polychromasia SLIGHT = 2-3 cells (100X) (0-2/hpf); Schistocytes SLIGHT = 2-5 cells (100X) (0-1/hpf); Target Cells SLIGHT = 2-5 cells (100X) (0-1/hpf); Tear Drops SLIGHT = 2-5 cells (100X) (0-1/hpf)
--- NOTE | 2019-08-06 16:37 | ULT ---
Sonographic guided random hepatic biopsy HISTORY: Brain . Liver transplant donor. FINDINGS: Sonographic survey shows good approach to left liver lobe. Sterile technique, buffered loca l anesthesia, sonographic guidance, and a subxiphoid approach were used to carefully advance a 17-gauge trocar needle into the left liver lobe. Position was confirmed with sonography. A total of 2 18-gauge core biopsy specimens were obtained and submitted to pathology for evaluation. Needle was removed. No evidence of complication. Patient tolerated the procedure well. IMPRESSION : Technically successful sonographic guided random hepatic biopsy. Pathology is pending.
[2019-08-06 16:41] LABS: ALT (SGPT) 35 U/L (8-55); AST (SGOT) 24 U/L (5-34); Albumin 3.1 g/dL (3.5-5.0); Alkaline Phosphatase 180 U/L (40-110); Anion Gap 26 mmol/L (10-20); BUN (Urea Nitrogen) 47 mg/dL (8.9-20.6); Bilirubin, Total 0.3 mg/dL (0.2-1.2); Calc. Creatinine Clearance 11 mL/min (70-130); Calcium 7.9 mg/dL (7.8-10.44); Carbon Dioxide 20 mmol/L (22-29); Chloride 97 mmol/L (98-107); Estimated GFR-MDRD 9; Globulin 2.8 g/dL (2.4-3.5); Glucose 361 mg/dL (70-105); Lipase Less than 4 U/L (8-78); Protein, Total 5.9 g/dL (6.0-8.3); Sodium 137 mmol/L (136-145)
--- NOTE | 2019-08-06 16:44 | RAD ---
PORTABLE CHEST ONE VIEW: 08/06/19 at 4:21 p.m. HISTORY: Organ donor. FINDINGS/IMPRESSION: Comparison made with the earlier exam of 4:59 a.m. from the same date. Endotracheal and nasogastric tubes remain in place. The heart size is normal. Moderate right sided p leural effusion is stable. There are right sided rib fractures. The cardiothoracic ratio is 0.48. POS: [facility]
--- NOTE | 2019-08-07 05:38 | PRG ---
DATE OF SERVICE: 08/06/2019 The patient is seen and examined today, invariably not doing very well and with an apneic study, from all indication the patient likely is brain . However, we will hold off on dialysis of this patient until full evaluation by critical care team who is taking care of him. Job ID: [id number]
--- NOTE | 2019-08-08 08:08 | PRG ---
DATE OF SERVICE: 08/06/2019 SUBJECTIVE: Mr. Orozco's status is unchanged. He continues to be unresponsive. OBJECTIVE: VITAL SIGNS: Blood pressure 110/70, pulse 80, respirations 20. LUNGS: Clear to auscultation. HEART: Regular rate and rhythm. ABDOMEN: Soft, nontender, nondistended. EXTREMITIES: No edema. IMPRESSION: 1. Guk-ag-fyothekd arrest. 2. End-stage renal disease. 3. Illicit drug use. RECOMMENDATIONS: At this point, from a CV standpoint, I have no further recommendations unless the patient's neurologic status improves. Neurologic status are currently being evaluated by Pulmonary and Neurology. Otherwise, from my standpoint, I have no further recommendations. Job ID: [id number]
--- NOTE | 2019-08-08 12:16 | DIS ---
DATE OF ADMISSION: 08/04/2019 DATE OF DISCHARGE: 08/06/2019 RESIDENT: Rebecca Bryant, PGY-2. DATE OF : 08/06/2019. TIME OF : 0945 hours. CAUSE OF : Cardiac arrest secondary to intraventricular hemorrhage. SECONDARY DIAGNOSES: 1. Cardiac arrest, status post return of spontaneous circulation with anoxic brain injury. 2. Intraventricular hemorrhage. 3. End-stage renal disease, on hemodialysis. 4. Diabetes mellitus. 5. History of drug abuse. 6. Transaminitis, likely secondary to shock liver. HOSPITAL COURSE: Mr. Orozco is a 49-year-old male with history of type 1 diabetes with frequent admissions for DKA as well as history of drug abuse, who presented here with cardiac arrest down for 20 to 40 minutes prior to CPR. EMS found the patient to be in asystole. We obtained ROSC in the ED. Epinephrine drip was started and the patient was intubated. He was found to be hypothermic. Dr. Negrete of Nephrology is consulted for dialysis. Dr. Keen was consulted from the ED and recommended no cardiac intervention at that time. , Pulmonology was consulted from the ED and adjust ventilator settings due to respiratory acidosis. Blood sugar was found to be 800. He was given insulin. UDS was positive for opiates, methamphetamines, and cocaine. He was noted to be anemic. Hemoglobin 9.7, white blood cell 4.6. Initial blood gas; pH 7.2, pCO2 of 30.5, and bicarb 11.8. Brain CT was performed. Job ID: [id number]
== END 2019-08-06 09:45 | disposition expired | DRG 64 ==
LOC: ERS 14:51 → CCU 16:55 → EDBD 16:55
PROVIDERS: ADMIT Family Medicine; ATTEND Family Medicine
PROC: 5A12012 Performance of Cardiac Output, Single, Manual (ICD-10-PCS; principal; 2019-08-04)
PROC: 0BH17EZ Insertion of Endotracheal Airway into Trachea, Via Natural or Artificial Opening (ICD-10-PCS; 2019-08-04)
PROC: 5A1945Z Respiratory Ventilation, 24-96 Consecutive Hours (ICD-10-PCS; 2019-08-04)
PROC: 5A1D70Z Performance of Urinary Filtration, Intermittent, Less than 6 Hours Per Day (ICD-10-PCS; 2019-08-05)
PROC: 0FD23ZX Extraction of Left Lobe Liver, Percutaneous Approach, Diagnostic (ICD-10-PCS; 2019-08-06)
PROC: BF45ZZZ Ultrasonography of Liver (ICD-10-PCS; 2019-08-06)
DX: I61.5 Nontraumatic intracerebral hemorrhage, intraventricular (principal); N18.6 End stage renal disease; K72.00 Acute and subacute hepatic failure without coma; J96.01 Acute respiratory failure with hypoxia; G93.6 Cerebral edema; G93.5 Compression of brain; G93.1 Anoxic brain damage, not elsewhere classified; E87.2 Acidosis; N25.81 Secondary hyperparathyroidism of renal origin; R74.0 Nonspecific elevation of levels of transaminase and lactic acid dehydrogenase [LDH]; E10.22 Type 1 diabetes mellitus with diabetic chronic kidney disease; D63.1 Anemia in chronic kidney disease; E10.65 Type 1 diabetes mellitus with hyperglycemia; T68.XXXA Hypothermia, initial encounter; E83.39 Other disorders of phosphorus metabolism; E03.9 Hypothyroidism, unspecified; F14.10 Cocaine abuse, uncomplicated; I46.8 Cardiac arrest due to other underlying condition; E87.5 Hyperkalemia; Z90.49 Acquired absence of other specified parts of digestive tract; Z79.4 Long term (current) use of insulin; Z91.15 Patient's noncompliance with renal dialysis; Z72.0 Tobacco use
CPT/HCPCS: 31500; 36415; 36416; 47000; 51702; 70450; 71045; 76942; 80053; 80306; 81003; 81015; 82150; 82550; 82553; 82805; 83690; 83735; 84100; 84484; 85025; 85610; 85730; 86850; 86900; 86901; 90935; 92950; 93005; 94002; 94003; 94760; 96365; 96375; 99292; C9113; G0257; J0171; J0461; J1644; J1815; J2704; J2930; J3490; J7050; J7070

== ENCOUNTER → 2019-08-06 09:45 | Day surgery (SDC) | payer MEDICAID, MEDICARE, OTHER ==
[~2019-08-06 09:45] MED LIST changes: -Atropine Sulfate 1 mg/10 ml Syringe ONE; -Calcium Chloride 1 GM/10 ML Abboject SYRINGE ONE; +Dextrose 50% Abboject 50 ML SYRINGE ONE; -EPINEPHrine 1 MG/10 ML Abboject SYRINGE ONE; +Levothyroxine Sodium 400 MCG in Sodium Chloride 0.9% 100 ML IVPB SCH; -Sodium Bicarb 50 MEQ/50 ML Abboject 8.4% SYRINGE ONE; +VANCOMYCIN IVPB PRN; +Vancomycin 1 GM in Premix Bag 1 BAG IVPB SCH; +methylPREDNISolone Sod Succ 2 GM in Sodium Chloride 0.9% 100 ML IVPB SCH
[2019-08-06 16:55] VITALS: BMI 18.5
[2019-08-06 17:42] LABS: Actual Bicarbonate (HCO3a) 19.4 mEq/L (22-28); CO2 Tension 43.2 mmHg (35.0-45.0); Calcium, Ionized 1.02 mmol/L (1.12-1.30); Carboxyhemoglobin (COHb) 1.1 gm% (0.0-3.0); Hemoglobin (Hb) 8.3 g/dL (14.0-18.0); O2 Tension (PaO2) 304.1 mmHg (80.0-100.0); Potassium - ABG Lab 6.05 mmol/L (3.70-5.30); pH, Arterial 7.27 (7.35-7.45)
[2019-08-06 17:43] LABS: Puncture Site ALINE
[2019-08-06 18:00] LABS: Bilirubin Negative (Negative); Blood, Urine 1+ (Negative); Clarity Clear (Clear); Glucose, Urine (Dipstick) 500 mg/dL (Negative); Leukocyte 250 Leu/uL (Negative); Nitrite Negative (Negative); Protein, Urine (Dipstick) 200 mg/dL (Neg-Trace); Squamous Epithelial None Seen HPF (0-3); Urobilinogen Normal mg/dL (Less than 2)
[2019-08-06 18:11] LABS: Bacteria/HPF Rare-Few HPF (None Seen)
[2019-08-06] MEDS: Piperacillin/Tazobactam 2.25 GM in Sodium Chloride 0.9% 100 ML IVPB SCH (18:44)
[2019-08-06] MEDS: Phytonadione 10 MG in Sodium Chloride 0.9% 50 ML IVPB SCH ×2 (18:46→21:26)
[2019-08-06 19:59] LABS: INR-International Normal Ratio 1.3; Prothrombin Time 16.1 SEC (12.0-14.7)
[2019-08-06 20:09] LABS: Hemoglobin 8.2 g/dL (14.0-18.0); Mean Corpuscular HGB CONC 32.1 g/dL (32.0-36.0); Mean Corpuscular Hemoglobin 31.6 pg (27.0-31.0); Mean Corpuscular Volume 98.4 fL (78.0-98.0); Platelet Count 185 thou/uL (130-400)
[2019-08-06 20:38] LABS: Anisocytosis SLIGHT = 6-15 cells (100X) (0-5/hpf); Band 33 % (5-11); Burr Cells SLIGHT = 2-5 cells (100X) (0-1/hpf); Lymphocytes 2 % (21-51); MDiff Complete? YES; Metamyelocyte 3 % (0-0); Monocytes 2 % (0-10); Neutrophil 60 % (42-75); Nucleated RBC 1 % (0); Platelet Morphology Comment Appears Adequate; Polychromasia SLIGHT = 2-3 cells (100X) (0-2/hpf); Schistocytes SLIGHT = 2-5 cells (100X) (0-1/hpf); Target Cells SLIGHT = 2-5 cells (100X) (0-1/hpf)
[2019-08-06 20:41] LABS: Troponin I 0.185 ng/mL (< 0.028)
[2019-08-06 20:43] LABS: Carbon Dioxide 23 mmol/L (22-29); Chloride 97 mmol/L (98-107); Potassium 6.9 mmol/L (3.5-5.1); Sodium 136 mmol/L (136-145)
[2019-08-06 20:44] LABS: BUN (Urea Nitrogen) 50 mg/dL (8.9-20.6); Bilirubin, Direct 0.3 mg/dL (0.1-0.3); Bilirubin, Total 0.4 mg/dL (0.2-1.2); Calc. Creatinine Clearance 11 mL/min (70-130); Calcium 7.9 mg/dL (7.8-10.44); Estimated GFR-MDRD 9; Glucose 339 mg/dL (70-105)
[2019-08-06 20:45] LABS: ALT (SGPT) 35 U/L (8-55); AST (SGOT) 22 U/L (5-34); Albumin 3.2 g/dL (3.5-5.0); Alkaline Phosphatase 184 U/L (40-110); Globulin 2.8 g/dL (2.4-3.5); Magnesium 2.1 mg/dL (1.6-2.6); Phosphorus 7.9 mg/dL (2.3-4.7)
[2019-08-06 20:46] LABS: Anion Gap 23 mmol/L (10-20)
[2019-08-06 20:47] LABS: Gamma GT (GGT) 68 U/L (12-64); Lipase Less than 4 U/L (8-78)
[2019-08-06 21:07] LABS: Hemoglobin A1c 8.3 % (4.0-6.0)
[2019-08-06] MEDS: HUMULIN R 100 UNITS in Sodium Chloride 0.9% 100 ML IVPB SCH ×2 (21:30→23:32)
--- NOTE | 2019-08-07 00:07 | RAD ---
RADIOGRAPH CHEST 1 VIEW: DATE: 08/06/2019 TIME: 11:58 PM HISTORY: 49-year-old male with respiratory failure. Potential organ donor. COMPARISON: 08/06/2019 4:21 PM FINDINGS: Endotracheal tube and tracheostomy tube remain. Moderate size right pleural effusion with underlying opacification of right mid and lower lung zones. Probable small left pleural effusion. Small atelectasis or infiltrate at left lower lobe. No cardiomegaly. No pulmonary edema. Upper lung zones a re clear. No pneumothorax. No interval change. IMPRESSION: 1. No interval change. 2. Moderate size right pleural effusion and underlying right lower lobe partial opacification.
[2019-08-07 00:52] LABS: Hemoglobin 7.6 g/dL (14.0-18.0); Mean Corpuscular HGB CONC 32.4 g/dL (32.0-36.0); Mean Corpuscular Hemoglobin 31.6 pg (27.0-31.0); Mean Corpuscular Volume 97.5 fL (78.0-98.0); Mean Platelet Volume 8.6 fL (7.4-10.4); Platelet Count 156 thou/uL (130-400); RBC Distribution Width 15.2 % (11.5-14.5); White Blood Cell (WBC) Count 4.7 thou/uL (4.8-10.8)
[2019-08-07 00:56] LABS: INR-International Normal Ratio 1.4; Prothrombin Time 16.7 SEC (12.0-14.7)
[2019-08-07 01:09] LABS: Band 28 % (5-11); Lymphocytes 8 % (21-51); MDiff Complete? YES; Monocytes 2 % (0-10); Neutrophil 62 % (42-75); Platelet Morphology Comment Appears Adequate
[2019-08-07 01:11] LABS: ALT (SGPT) 31 U/L (8-55); AST (SGOT) 16 U/L (5-34); Alkaline Phosphatase 163 U/L (40-110); Anion Gap 20 mmol/L (10-20); BUN (Urea Nitrogen) 54 mg/dL (8.9-20.6); Bilirubin, Direct 0.2 mg/dL (0.1-0.3); Bilirubin, Total 0.4 mg/dL (0.2-1.2); Calc. Creatinine Clearance 11 mL/min (70-130); Calcium 7.7 mg/dL (7.8-10.44); Carbon Dioxide 25 mmol/L (22-29); Chloride 100 mmol/L (98-107); Estimated GFR-MDRD 9; Globulin 2.6 g/dL (2.4-3.5); Glucose 272 mg/dL (70-105); Phosphorus 7.3 mg/dL (2.3-4.7); Protein, Total 5.6 g/dL (6.0-8.3); Sodium 140 mmol/L (136-145)
[2019-08-07] MEDS: HUMULIN R 100 UNITS in Sodium Chloride 0.9% 100 ML IVPB SCH (02:08)
[2019-08-07 02:12] LABS: Actual Bicarbonate (HCO3a) 21.8 mEq/L (22-28); Base Excess (BEa) -4.6 mEq/L (-2.0 to +3.0); CO2 Tension 46.6 mmHg (35.0-45.0); Calcium, Ionized 0.99 mmol/L (1.12-1.30); Carboxyhemoglobin (COHb) 1.4 gm% (0.0-3.0); Hemoglobin (Hb) 8.9 g/dL (14.0-18.0); O2 Tension (PaO2) 287.7 mmHg (80.0-100.0); Potassium - ABG Lab 4.61 mmol/L (3.70-5.30); pH, Arterial 7.29 (7.35-7.45)
[2019-08-07 02:13] LABS: Puncture Site ART LINE
[2019-08-07] MEDS: Piperacillin/Tazobactam 2.25 GM in Sodium Chloride 0.9% 100 ML IVPB SCH (05:09)
[2019-08-07 05:54] LABS: INR-International Normal Ratio 1.3; Prothrombin Time 16.2 SEC (12.0-14.7)
[2019-08-07 05:55] LABS: PTT 41.6 SEC (22.9-36.1)
[2019-08-07] MEDS: Dextrose 50% Abboject 50 ML SYRINGE ONE ×2 (06:02→08:33)
[2019-08-07 06:08] LABS: Band 19 % (5-11); Hemoglobin 7.5 g/dL (14.0-18.0); Lymphocytes 7 % (21-51); MDiff Complete? YES; Mean Corpuscular HGB CONC 32.2 g/dL (32.0-36.0); Mean Corpuscular Hemoglobin 31.6 pg (27.0-31.0); Mean Corpuscular Volume 98.2 fL (78.0-98.0); Mean Platelet Volume 8.6 fL (7.4-10.4); Monocytes 6 % (0-10); Neutrophil 68 % (42-75); Platelet Count 161 thou/uL (130-400); Platelet Morphology Comment Appears Adequate; RBC Distribution Width 15.3 % (11.5-14.5); Red Blood Cell (RBC) Count 2.36 mill/uL (4.70-6.10); White Blood Cell (WBC) Count 6.4 thou/uL (4.8-10.8)
[2019-08-07 06:15] LABS: Bilirubin Negative (Negative); Blood, Urine 1+ (Negative); Clarity Clear (Clear); Glucose, Urine (Dipstick) 300 mg/dL (Negative); Leukocyte 250 Leu/uL (Negative); Nitrite Negative (Negative); Protein, Urine (Dipstick) 200 mg/dL (Neg-Trace); RBC/HPF 0-3 HPF (0-3); Squamous Epithelial 0-3 HPF (0-3); Urobilinogen Normal mg/dL (Less than 2)
[2019-08-07 06:16] LABS: ALT (SGPT) 30 U/L (8-55); AST (SGOT) 14 U/L (5-34); Albumin 3.2 g/dL (3.5-5.0); Alkaline Phosphatase 153 U/L (40-110); Anion Gap 24 mmol/L (10-20); BUN (Urea Nitrogen) 55 mg/dL (8.9-20.6); Bilirubin, Direct 0.2 mg/dL (0.1-0.3); Bilirubin, Total 0.4 mg/dL (0.2-1.2); Calc. Creatinine Clearance 11 mL/min (70-130); Calcium 7.4 mg/dL (7.8-10.44); Carbon Dioxide 22 mmol/L (22-29); Chloride 102 mmol/L (98-107); Estimated GFR-MDRD 9; Globulin 2.2 g/dL (2.4-3.5); Phosphorus 6.5 mg/dL (2.3-4.7); Potassium 4.9 mmol/L (3.5-5.1); Protein, Total 5.4 g/dL (6.0-8.3); Sodium 143 mmol/L (136-145)
[2019-08-07 06:19] LABS: Glucose 58 mg/dL (70-105)
[2019-08-07 06:19] LABS: Bacteria/HPF 1+ HPF (None Seen)
[2019-08-07 06:40] LABS: CKMB 3.3 ng/mL (0-6.6)
[2019-08-07 07:59] LABS: Actual Bicarbonate (HCO3a) 23.3 mEq/L (22-28); CO2 Tension 42.5 mmHg (35.0-45.0); Calcium, Ionized 0.99 mmol/L (1.12-1.30); Hemoglobin (Hb) 7.3 g/dL (14.0-18.0); O2 Tension (PaO2) 320.9 mmHg (80.0-100.0); Potassium - ABG Lab 4.95 mmol/L (3.70-5.30); pH, Arterial 7.36 (7.35-7.45)
[2019-08-07 08:13] LABS: ALV-art Gradient 338.975 (0-20); Puncture Site LINE
[2019-08-07 09:22] VITALS: TEMP 97.6
--- NOTE | 2019-08-07 09:38 | RAD ---
PORTABLE CHEST: Date: 08/07/2019 HISTORY: Shortness of breath. Respirator CCU follow-up. COMPARISON: 08/06/2019. FINDINGS: ET tube, NG tube unchanged. Hazy opacification of both lower lobes again noted with evidence of bilat eral effusions, larger on the right. No interval change from yesterday. IMPRESSION: Stable chest findings. POS: [facility]
--- NOTE | 2019-08-07 22:44 | EKG ---
Test Reason : Blood Pressure : / mmHG Vent. Rate : 067 BPM Atrial Rate : 067 BPM P-R Int : 198 ms QRS Dur : 094 ms QT Int : 460 ms P-R-T Axes : 051 012 140 degrees QTc Int : 486 ms Normal sinus rhythm Nonspecific T wave abnormality Prolonged QT Abnormal ECG No previous ECGs available Confirmed by Hemant KING ([id number]) on 08/07/2019 10:44:14 PM Referred By: Confirmed By:Hemant KING
== END | disposition expired ==
LOC: SDC 09:45 → CCU 08-07 02:33
DX: Z00.5 Encounter for examination of potential donor of organ and tissue (principal); J96.90 Respiratory failure, unspecified, unspecified whether with hypoxia or hypercapnia
CPT/HCPCS: 36416; 71045; 80053; 81001; 82150; 82248; 82553; 82805; 82977; 83036; 83690; 83735; 84100; 84484; 85025; 85384; 85610; 85730; 86850; 86900; 86901; 87205; 88331; 93005; 93010; 94002; 94003; J1815; J2543; J2930; J3370; J3430; J3490; P9045